=== PATIENT | female | born 1960 | race Hispanic/Latino ===

== ENCOUNTER 2022-06-19 05:37 | Day surgery (SDC) | payer OTHER ==
[2022-06-16 11:38] LABS: BASOPHILS % (AUTO) 0.7 % (0.0-5.0); EOSINOPHILS % (AUTO) 1.9 % (0.0-8.0); LYMPHOCYTES % (AUTO) 18.1 % (21.0-51.0); MEAN CORPUSCULAR HEMOGLOBIN 28.3 pg (27.0-33.0); MEAN CORPUSCULAR HGB CONC 31.9 g/dL (32.0-36.0); MEAN CORPUSCULAR VOLUME 88.8 fL (79-99); MONOCYTES % (AUTO) 5.8 % (3.0-13.0); PLATELET COUNT (AUTO) 116 K/uL (130-400); RED BLOOD CELL COUNT(AUTO) 4.73 MIL/uL (4.00-5.50); RED CELL DISTRIBUTION WIDTH 14.2 % (11.0-15.5); WHITE BLOOD COUNT (AUTO) 4.1 K/uL (4.8-10.8)
[2022-06-16 11:50] LABS: INR 0.96 (0.85-1.15); PROTHROMBIN TIME 10.5 SEC (9.6-11.6)
[2022-06-16 12:02] LABS: ALBUMIN 3.3 g/dL (3.5-5.0); CREATININE 5.2 mg/dL (0.5-1.5); POTASSIUM 4.7 mmol/L (3.5-5.1); TOTAL PROTEIN, SERUM 8.8 g/dL (6.0-8.3)
[~2022-06-19] VITALS: Ht 152.4 cm; Wt 54.2 kg
[2022-06-19] VITALS (18 sets, daily range): BP systolic 111–198; BP diastolic 42–78
[~2022-06-19 05:37] MED LIST: AEC81 PO; AMLO-257 PO; CALC667C10 PO; FOLI1TAB85 PO; GABA100C PO; INSU100V37 SQ; IRON PO; METO25TA6 PO; OMEP20TA20 PO; ROSU40TA21 PO; ZINC220T4 PO
[2022-06-19] MEDS ORDERED: CEFAZOLIN SODIUM 1 GM VIAL IVP SCH (06:00)
[2022-06-19] MEDS ORDERED: 0.9% NACL 500ML IV.SOLN 500 ML IV ONE (06:31)
[2022-06-19] MEDS ORDERED: PHENYLEPHRINE HCL 10 MG/ML 1ML VIAL IV ONE ×2 (07:00→07:03)
[2022-06-19] MEDS ORDERED: FENTANYL CITRATE PF 50 MCG/1 ML 2ML VIAL ONE ×2 (07:01→10:11)
[2022-06-19] MEDS ORDERED: LIDOCAINE HCL-MPF 1% 2ML VIAL ONE (07:01)
[2022-06-19] MEDS ORDERED: BUPIVACAINE/PF 0.25% 30ML VIAL IJ ONE ×2 (07:01→08:03)
[2022-06-19] MEDS ORDERED: MIDAZOLAM HCL 1 MG/ML 2ML VIAL ONE (07:01)
[2022-06-19] MEDS ORDERED: PROPOFOL 10 MG/ML 20ML VIAL IV ONE (07:01)
[2022-06-19] MEDS ORDERED: ROCURONIUM 10MG/1ML SYR 10 MG/ML ML ONE (07:01)
[2022-06-19] MEDS ORDERED: GLYCOPYRROLATE 1 MG/5 ML SYRINGE ONE (07:01)
[2022-06-19] MEDS ORDERED: THROMBIN-JMI 20000 UNIT KIT TP ONE ×4 (07:02→09:32)
[2022-06-19] MEDS ORDERED: FAMOTIDINE 20MG VIAL IV ONE (07:03)
[2022-06-19] MEDS ORDERED: ONDANSETRON 4MG INJ ONE (07:52)
[2022-06-19] MEDS ORDERED: LIDOCAINE HCL-MPF 1% 2ML VIAL IJ ONE (08:03)
[2022-06-19] MEDS ORDERED: HEPARIN 5,000 UNIT VIAL IRRIG ONE (08:03)
[2022-06-19] MEDS ORDERED: CEFAZOLIN SODIUM 2 GM VIAL IV ONE (08:03)
[2022-06-19] MEDS ORDERED: NEOSTIGMINE 5MG/5ML SYR IV ONE (09:38)
[2022-06-19] MEDS ORDERED: LABETALOL 20MG SYG IV ONE (10:07)
== END 2022-06-19 12:30 | disposition home or self-care (01) ==
LOC: DAH 05:37
PROVIDERS: ATTEND Student in an Organized Health Care Education/Training Program
DX: E11.22 Type 2 diabetes mellitus with diabetic chronic kidney disease (principal); I12.0 Hypertensive chronic kidney disease with stage 5 chronic kidney disease or end stage renal disease; N18.6 End stage renal disease; E78.5 Hyperlipidemia, unspecified; K21.9 Gastro-esophageal reflux disease without esophagitis; E78.00 Pure hypercholesterolemia, unspecified; Z79.01 Long term (current) use of anticoagulants; Z79.899 Other long term (current) drug therapy; Z90.49 Acquired absence of other specified parts of digestive tract; Z79.82 Long term (current) use of aspirin; Z98.890 Other specified postprocedural states; Z83.3 Family history of diabetes mellitus; Z82.49 Family history of ischemic heart disease and other diseases of the circulatory system; Z99.2 Dependence on renal dialysis; Z84.1 Family history of disorders of kidney and ureter
CPT/HCPCS: 80053; 85025; 85610; 85730; 86850 ×2; 86900 ×2; 86901 ×2; 87426; 36415 ×2; 36830; 84132; 82948 ×2; A6260; J0690 ×2; J7040; J3490 ×6; J3010 ×2; J2710; J2250; J2704; J2405; J1644 ×2; J2370 ×2; G0168; A4649; C1713 ×2; C1768; A4215; A4223; A4222; A4221; A4663; A4600

== ENCOUNTER → 2022-08-12 | Outpatient (CLI) | payer OTHER | END | disposition home or self-care (01) | LOC: RAH 09:42 | PROVIDERS: ATTEND Internal Medicine Critical Care Medicine | DX: N28.1 Cyst of kidney, acquired (principal); R16.1 Splenomegaly, not elsewhere classified | CPT/HCPCS: 76700 ==

== ENCOUNTER → 2022-10-13 | Outpatient (CLI) | payer OTHER ==
[2022-10-13 09:37] LABS: CREATININE 4.3 mg/dL (0.5-1.5); POTASSIUM 4.3 mmol/L (3.5-5.1); TOTAL PROTEIN, SERUM 7.8 g/dL (6.0-8.3)
== END | disposition home or self-care (01) ==
LOC: LAB 08:48
PROVIDERS: ATTEND Student in an Organized Health Care Education/Training Program
DX: I10 Essential (primary) hypertension (principal)
CPT/HCPCS: 36415; 80053

== ENCOUNTER → 2022-10-27 | Outpatient (CLI) | payer OTHER ==
[~2022-10-27] MED LIST changes: +IOHEXOL 350 MG/ML 100ML INFUS..BTL IV ONE; +METOPROLOL TARTRATE 1 MG/ML 5ML VIAL IV ONE
== END | disposition home or self-care (01) ==
LOC: RAH 08:51
PROVIDERS: ATTEND Student in an Organized Health Care Education/Training Program
DX: J90 Pleural effusion, not elsewhere classified (principal); I20.2 Refractory angina pectoris
CPT/HCPCS: 75574; J3490; Q9967

== ENCOUNTER → 2022-12-15 | Outpatient (CLI) | payer OTHER ==
[~2022-12-15] MED LIST changes: -IOHEXOL 350 MG/ML 100ML INFUS..BTL IV ONE; -METOPROLOL TARTRATE 1 MG/ML 5ML VIAL IV ONE; +REGADENOSON 0.4 MG/5 ML PF SYG IVP SCH
== END | disposition home or self-care (01) ==
LOC: SHCH 08:24
PROVIDERS: ATTEND Student in an Organized Health Care Education/Training Program
DX: I25.10 Atherosclerotic heart disease of native coronary artery without angina pectoris (principal); E11.9 Type 2 diabetes mellitus without complications; Z79.899 Other long term (current) drug therapy
CPT/HCPCS: 78452; 96374; 93017; J2785; A9500 ×2

== ENCOUNTER → 2023-03-29 | Outpatient (CLI) | payer OTHER ==
[~2023-03-29] VITALS: Ht 152.4 cm; Wt 59.1 kg
[~2023-03-29] MED LIST changes: +CARV6.25 PO; +CYAN250014 PO; +GABA-529 PO; +PIOG15TA66 PO; -REGADENOSON 0.4 MG/5 ML PF SYG IVP SCH
[2023-03-29 11:14] LABS: BASOPHILS % (AUTO) 0.5 % (0.0-5.0); HEMATOCRIT 38.2 % (36-48); LYMPHOCYTES % (AUTO) 26.3 % (21.0-51.0); MEAN CORPUSCULAR HEMOGLOBIN 30.1 pg (27.0-33.0); MEAN CORPUSCULAR HGB CONC 31.2 g/dL (32.0-36.0); MEAN CORPUSCULAR VOLUME 96.7 fL (79-99); MONOCYTES % (AUTO) 9.3 % (3.0-13.0); NEUTROPHILS % (AUTO) 62.4 % (40.0-77.0); PLATELET COUNT (AUTO) 60 K/uL (130-400); RED BLOOD CELL COUNT(AUTO) 3.95 MIL/uL (4.00-5.50); RED CELL DISTRIBUTION WIDTH 14.4 % (11.0-15.5); WHITE BLOOD COUNT (AUTO) 1.9 K/uL (4.8-10.8)
[2023-03-29 11:15] LABS: APPEARANCE,URINE CLEAR (CLEAR); BILIRUBIN,URINE NEGATIVE (NEGATIVE); COLOR,URINE LIGHT-YELLOW (YELLOW); GLUCOSE, URINE (UA) 50 mg/dL (NEGATIVE); KETONES,URINE NEGATIVE (NEGATIVE); LEUKOCYTE ESTERASE ,URINE NEGATIVE Leu/uL (NEGATIVE); NITRATE,URINE NEGATIVE (NEGATIVE); PROTEIN,URINE 300 mg/dL (NEGATIVE); UROBILINOGEN,URINE 0.2 mg/dL (0.2-1.0)
[2023-03-29 11:20] LABS: CREATININE 3.8 mg/dL (0.5-1.5); POTASSIUM 4.2 mmol/L (3.5-5.1)
[2023-03-29 11:22] VITALS: BP 170/73
[2023-03-29 11:36] LABS: INR 1.05 (0.85-1.15); PROTHROMBIN TIME 11.4 SEC (9.6-11.6)
[2023-03-29 11:37] LABS: BACTERIA,URINE RARE /HPF (None Seen); MUCUS,URINE RARE LPF (None Seen); RBC,URINE 0-1 /HPF (0-1); SQUAMOUS EPITHELIAL CELL,UR RARE /HPF (0-2)
[2023-03-29 11:38] LABS: PARTIAL THROMBOPLASTIN TIME 30.7 SEC (26.3-35.5)
[2023-03-29 11:48] LABS: B-TYPE NATRIURETIC PEPTIDE 289 pg/mL (0-100)
[2023-03-29 12:57] LABS: PLATELET MORPHOLOGY COMMENT DECREASED
== END | disposition home or self-care (01) ==
LOC: DAH 10:00 → EDSTATUS 11:00
PROVIDERS: ATTEND Student in an Organized Health Care Education/Training Program
DX: Z01.818 Encounter for other preprocedural examination (principal); I50.9 Heart failure, unspecified; I45.2 Bifascicular block; R91.8 Other nonspecific abnormal finding of lung field; I51.7 Cardiomegaly; I70.0 Atherosclerosis of aorta; Z90.49 Acquired absence of other specified parts of digestive tract
CPT/HCPCS: 36415; 71045; 80048; 81001; 83880; 85025; 85610; 85730; 93005

== ENCOUNTER → 2023-04-14 | Outpatient (CLI) | payer OTHER ==
[~2023-04-14] MED LIST changes: -AMLO-257 PO; -CYAN250014 PO; -GABA100C PO; -IRON PO; -METO25TA6 PO; -OMEP20TA20 PO; -ZINC220T4 PO
[2023-04-14 12:08] LABS: BASOPHILS % (AUTO) 0.8 % (0.0-5.0); EOSINOPHILS % (AUTO) 0.4 % (0.0-8.0); LYMPHOCYTES % (AUTO) 22.8 % (21.0-51.0); MEAN CORPUSCULAR HEMOGLOBIN 30.1 pg (27.0-33.0); MEAN CORPUSCULAR HGB CONC 31.7 g/dL (32.0-36.0); MEAN CORPUSCULAR VOLUME 94.9 fL (79-99); MONOCYTES % (AUTO) 8.4 % (3.0-13.0); NEUTROPHILS % (AUTO) 67.2 % (40.0-77.0); PLATELET COUNT (AUTO) 71 K/uL (130-400); RED BLOOD CELL COUNT(AUTO) 4.32 MIL/uL (4.00-5.50); RED CELL DISTRIBUTION WIDTH 14.1 % (11.0-15.5); WHITE BLOOD COUNT (AUTO) 2.6 K/uL (4.8-10.8)
[2023-04-14 12:38] LABS: BAND NEUTROPHILS % (MANUAL) 21 % (0-2); BASOPHILS % (MANUAL) 1 % (0-2); EOSINOPHILS % (MANUAL) 1 % (1-6); LYMPHOCYTES % (MANUAL) 20 % (22-44); MAN.DIFF COMMENT-IMPRESSION MANUAL DIFFERENTIAL; MONOCYTES % (MANUAL) 5 % (2-9); SEGMENTED NEUTROPHILS % 52 % (40-70)
[2023-04-14 12:39] LABS: PLATELET MORPHOLOGY COMMENT DECREASED
== END | disposition home or self-care (01) ==
LOC: LAB 09:50
PROVIDERS: ATTEND Student in an Organized Health Care Education/Training Program
DX: D72.819 Decreased white blood cell count, unspecified (principal)
CPT/HCPCS: 36415; 85025

== ENCOUNTER 2023-05-17 05:45 | Day surgery (SDC) | payer OTHER ==
[2023-05-13 09:17] LABS: BASOPHILS % (AUTO) 0.4 % (0.0-5.0); EOSINOPHILS % (AUTO) 0.8 % (0.0-8.0); HEMATOCRIT 41.3 % (36-48); LYMPHOCYTES % (AUTO) 30.4 % (21.0-51.0); MEAN CORPUSCULAR HEMOGLOBIN 29.7 pg (27.0-33.0); MEAN CORPUSCULAR HGB CONC 31.2 g/dL (32.0-36.0); MEAN CORPUSCULAR VOLUME 95.2 fL (79-99); MONOCYTES % (AUTO) 7.5 % (3.0-13.0); NEUTROPHILS % (AUTO) 60.9 % (40.0-77.0); PLATELET COUNT (AUTO) 63 K/uL (130-400); RED BLOOD CELL COUNT(AUTO) 4.34 MIL/uL (4.00-5.50); RED CELL DISTRIBUTION WIDTH 13.6 % (11.0-15.5); WHITE BLOOD COUNT (AUTO) 2.4 K/uL (4.8-10.8)
[2023-05-13 09:22] LABS: CREATININE 5.7 mg/dL (0.5-1.5); POTASSIUM 4.4 mmol/L (3.5-5.1)
[2023-05-13 09:23] LABS: APPEARANCE,URINE CLEAR (CLEAR); BILIRUBIN,URINE NEGATIVE (NEGATIVE); COLOR,URINE LIGHT-YELLOW (YELLOW); GLUCOSE, URINE (UA) NEGATIVE (NEGATIVE); KETONES,URINE NEGATIVE (NEGATIVE); LEUKOCYTE ESTERASE ,URINE 25 Leu/uL (NEGATIVE); NITRATE,URINE NEGATIVE (NEGATIVE); OCCULT BLOOD,URINE SMALL (NEGATIVE); PROTEIN,URINE 200 mg/dL (NEGATIVE); UROBILINOGEN,URINE 0.2 mg/dL (0.2-1.0)
[2023-05-13 09:25] LABS: INR 1.05 (0.85-1.15); PROTHROMBIN TIME 11.4 SEC (9.6-11.6)
[2023-05-13 10:10] LABS: B-TYPE NATRIURETIC PEPTIDE 165 pg/mL (0-100)
[2023-05-13 10:11] LABS: BACTERIA,URINE FEW /HPF (None Seen); MUCUS,URINE RARE LPF (None Seen); SQUAMOUS EPITHELIAL CELL,UR MANY /HPF (0-2)
[2023-05-13 10:40] LABS: BAND NEUTROPHILS % (MANUAL) 1 % (0-2); BASOPHILS % (MANUAL) 2 % (0-2); EOSINOPHILS % (MANUAL) 5 % (1-6); LYMPHOCYTES % (MANUAL) 23 % (22-44); MAN.DIFF COMMENT-IMPRESSION MANUAL DIFFERENTIAL; MONOCYTES % (MANUAL) 8 % (2-9); PLATELET MORPHOLOGY COMMENT DECREASED; REACTIVE LYMPHOCYTES 1 % (0-0); SEGMENTED NEUTROPHILS % 60 % (40-70)
[2023-05-17] VITALS (14 sets, daily range): BP systolic 106–185; BP diastolic 40–62
[~2023-05-17] VITALS: Ht 152.4 cm; Wt 61.1 kg
[~2023-05-17 05:45] MED LIST changes: +AMLO-258 PO
[2023-05-17] MEDS ORDERED: 0.9%NACL 1000ML 1,000 ML IV ONE (06:21)
[2023-05-17] MEDS ORDERED: MIDAZOLAM HCL 1 MG/ML 2ML VIAL ONE (07:09)
[2023-05-17] MEDS ORDERED: LIDOCAINE HCL 400MG/20ML VIAL ONE (07:09)
[2023-05-17] MEDS ORDERED: FENTANYL CITRATE PF 50 MCG/1 ML 2ML VIAL ONE (07:09)
[2023-05-17] MEDS ORDERED: VERAPAMIL HCL 2.5 MG/ML VIAL ONE (07:10)
[2023-05-17] MEDS ORDERED: IOHEXOL 350 MG/ML 100ML INFUS..BTL IV ONE (07:10)
[2023-05-17] MEDS ORDERED: HEPARIN 10,000 UNIT/10ML (1,000 UNIT/ML) VIAL ONE (07:10)
[2023-05-17] MEDS ORDERED: NITROGLYCERIN 50MG VIAL ONE (07:10)
[2023-05-17 07:20] LABS: BASOPHILS % (AUTO) 0.9 % (0.0-5.0); EOSINOPHILS % (AUTO) 0.4 % (0.0-8.0); LYMPHOCYTES % (AUTO) 33.8 % (21.0-51.0); MEAN CORPUSCULAR HEMOGLOBIN 30.1 pg (27.0-33.0); MEAN CORPUSCULAR HGB CONC 31.8 g/dL (32.0-36.0); MEAN CORPUSCULAR VOLUME 94.5 fL (79-99); MONOCYTES % (AUTO) 10.4 % (3.0-13.0); NEUTROPHILS % (AUTO) 54.1 % (40.0-77.0); PLATELET COUNT (AUTO) 57 K/uL (130-400); RED BLOOD CELL COUNT(AUTO) 4.02 MIL/uL (4.00-5.50); RED CELL DISTRIBUTION WIDTH 13.7 % (11.0-15.5); WHITE BLOOD COUNT (AUTO) 2.3 K/uL (4.8-10.8)
[2023-05-17 07:50] LABS: BAND NEUTROPHILS % (MANUAL) 1 % (0-2); LYMPHOCYTES % (MANUAL) 29 % (22-44); MAN.DIFF COMMENT-IMPRESSION MANUAL DIFFERENTIAL; MONOCYTES % (MANUAL) 7 % (2-9); PLATELET MORPHOLOGY COMMENT DECREASED; REACTIVE LYMPHOCYTES 2 % (0-0); SEGMENTED NEUTROPHILS % 61 % (40-70)
[2023-05-17] MEDS ORDERED: GLUCAGON 1MG KIT 1 MG ML IM PRN (08:30)
[2023-05-17] MEDS ORDERED: DEXTROSE 50%-WATER 50 ML DISP.SYRIN IV PRN (08:30)
== END 2023-05-17 14:50 | disposition home or self-care (01) ==
LOC: DAH 05:45 → EDSTATUS 08:00 → DAH 14:50
PROVIDERS: ATTEND Student in an Organized Health Care Education/Training Program
DX: I25.119 Atherosclerotic heart disease of native coronary artery with unspecified angina pectoris (principal); E11.22 Type 2 diabetes mellitus with diabetic chronic kidney disease; I13.2 Hypertensive heart and chronic kidney disease with heart failure and with stage 5 chronic kidney disease, or end stage renal disease; N18.6 End stage renal disease; I50.42 Chronic combined systolic (congestive) and diastolic (congestive) heart failure; I25.2 Old myocardial infarction; I27.21 Secondary pulmonary arterial hypertension; D72.819 Decreased white blood cell count, unspecified; E78.2 Mixed hyperlipidemia; R55 Syncope and collapse; I44.4 Left anterior fascicular block; Z98.890 Other specified postprocedural states; Z90.49 Acquired absence of other specified parts of digestive tract; Z82.49 Family history of ischemic heart disease and other diseases of the circulatory system; Z83.3 Family history of diabetes mellitus; Z99.2 Dependence on renal dialysis
CPT/HCPCS: 80048; 83880; 85025 ×2; 85610; 85730; 87088; 81001; 36415 ×2; 71045; 93005; 93460; 84132; 82948 ×2; C1894 ×3; C1769; C1760; J3010; J3490 ×2; J7030; J2250; J1644; Q9967; A4215 ×2; A4222; A4663; A4216; A4606; Q9965; A4223 ×3; A4221; 99156; 99157

== ENCOUNTER → 2023-07-27 | Outpatient (CLI) | payer OTHER ==
[2023-07-27 12:22] LABS: CHOLESTEROL 134 mg/dL (<200); HDL CHOLESTEROL 40 mg/dL (35-85); LDL DIRECT 64 mg/dL (0-99); TRIGLYCERIDES 133 mg/dL (30-200)
== END | disposition home or self-care (01) ==
LOC: LAB 05-26 14:13
PROVIDERS: ATTEND Student in an Organized Health Care Education/Training Program
DX: E78.2 Mixed hyperlipidemia (principal)
CPT/HCPCS: 36415; 80061

== ENCOUNTER → 2024-07-12 | Outpatient (CLI) | payer OTHER ==
[~2024-07-12] MED LIST changes: -ROSU40TA21 PO; +ROSU40TA70 PO
[2024-07-12 10:31] LABS: BASOPHILS # (AUTO) 0.01 K/uL (0.00-0.20); BASOPHILS % (AUTO) 0.6 % (0.0-5.0); EOSINOPHILS # (AUTO) 0.02 K/uL (0.00-0.70); EOSINOPHILS % (AUTO) 1.2 % (0.0-8.0); HEMATOCRIT 29.5 % (36-48); LYMPHOCYTES # (AUTO) 0.5 K/uL (1.0-4.8); LYMPHOCYTES % (AUTO) 26.2 % (21.0-51.0); MEAN CORPUSCULAR HEMOGLOBIN 30.4 pg (27.0-33.0); MEAN CORPUSCULAR HGB CONC 31.9 g/dL (32.0-36.0); MEAN CORPUSCULAR VOLUME 95.5 fL (79-99); MONOCYTES # (AUTO) 0.2 K/uL (0.1-1.0); MONOCYTES % (AUTO) 12.8 % (3.0-13.0); NEUTROPHILS % (AUTO) 59.2 % (40.0-77.0); PLATELET COUNT (AUTO) 48 K/uL (130-400); RED BLOOD CELL COUNT(AUTO) 3.09 MIL/uL (4.00-5.50); RED CELL DISTRIBUTION WIDTH 13.9 % (11.0-15.5); WHITE BLOOD COUNT (AUTO) 1.7 K/uL (4.8-10.8)
[2024-07-12 12:44] LABS: PLATELET MORPHOLOGY COMMENT MARKED DECREASE
== END | disposition home or self-care (01) ==
LOC: LAB 09:45
PROVIDERS: ATTEND Internal Medicine Gastroenterology
DX: D69.6 Thrombocytopenia, unspecified (principal)
CPT/HCPCS: 36415; 85025

== ENCOUNTER 2024-07-18 11:29 | Day surgery (SDC) | payer OTHER ==
[~2024-07-18] VITALS: Ht 154.9 cm; Wt 61.7 kg
[2024-07-18] VITALS (14 sets, daily range): BP systolic 110–145; BP diastolic 46–77; PULSE 63–75; RESP 15–18
[2024-07-18 12:18] LABS: BASOPHILS # (AUTO) 0.02 K/uL (0.00-0.20); BASOPHILS % (AUTO) 0.8 % (0.0-5.0); EOSINOPHILS # (AUTO) 0.02 K/uL (0.00-0.70); EOSINOPHILS % (AUTO) 0.8 % (0.0-8.0); HEMATOCRIT 31.8 % (36-48); IMMATURE GRANULOCYTE ABSOLUTE 0.01 K/uL (0-1); LYMPHOCYTES # (AUTO) 0.7 K/uL (1.0-4.8); LYMPHOCYTES % (AUTO) 26.9 % (21.0-51.0); MEAN CORPUSCULAR HEMOGLOBIN 30.9 pg (27.0-33.0); MEAN CORPUSCULAR HGB CONC 31.4 g/dL (32.0-36.0); MEAN CORPUSCULAR VOLUME 98.1 fL (79-99); MONOCYTES # (AUTO) 0.2 K/uL (0.1-1.0); MONOCYTES % (AUTO) 7.2 % (3.0-13.0); NEUTROPHILS # (AUTO) 1.6 K/uL (1.8-7.7); NEUTROPHILS % (AUTO) 63.9 % (40.0-77.0); PLATELET COUNT (AUTO) 52 K/uL (130-400); RED BLOOD CELL COUNT(AUTO) 3.24 MIL/uL (4.00-5.50); RED CELL DISTRIBUTION WIDTH 14.6 % (11.0-15.5); WHITE BLOOD COUNT (AUTO) 2.5 K/uL (4.8-10.8)
[2024-07-18 12:27] LABS: CREATININE 5.7 mg/dL (0.5-1.0); POTASSIUM 4.9 mmol/L (3.5-5.1)
[2024-07-18] MEDS ORDERED: CARV12.511 PO (12:40)
[2024-07-18] MEDS ORDERED: GABA300C PO (12:42)
[2024-07-18] MEDS ORDERED: INSU100V37 SQ (12:42)
[2024-07-18] MEDS ORDERED: IRON PO (12:44)
[2024-07-18] MEDS ORDERED: OMEP20CA12 PO (12:44)
[2024-07-18] MEDS ORDERED: CHOL200013 PO (12:48)
[2024-07-18] MEDS ORDERED: CYAN-106 PO (12:48)
[2024-07-18] MEDS: 0.9%NACL 1000ML 1,000 ML IV ONE (12:51)
[2024-07-18 13:42] LABS: INR 1.1 (0.85-1.15); PROTHROMBIN TIME 11.8 SEC (9.6-11.6)
[2024-07-18] MEDS ORDERED: proPOFol 10 MG/ML 20ML VIAL IV ONE (14:15)
[2024-07-18 14:38] LABS: LYMPHOCYTES % (MANUAL) 14 % (22-44); MAN.DIFF COMMENT-IMPRESSION MANUAL DIFFERENTIAL; MONOCYTES % (MANUAL) 2 % (2-9); SEGMENTED NEUTROPHILS % 84 % (40-70); TOTAL CELLS COUNTED 100
[2024-07-18 14:40] LABS: PLATELET MORPHOLOGY COMMENT DECREASED
== END 2024-07-18 15:48 | disposition home or self-care (01) ==
LOC: DAH 11:29 → ENDO 11:29
PROVIDERS: ATTEND Internal Medicine Gastroenterology
DX: K74.60 Unspecified cirrhosis of liver (principal); K29.00 Acute gastritis without bleeding; K44.9 Diaphragmatic hernia without obstruction or gangrene; K22.89 Other specified disease of esophagus; K76.6 Portal hypertension; K31.89 Other diseases of stomach and duodenum; I12.0 Hypertensive chronic kidney disease with stage 5 chronic kidney disease or end stage renal disease; E11.22 Type 2 diabetes mellitus with diabetic chronic kidney disease; N18.6 End stage renal disease; D69.6 Thrombocytopenia, unspecified; E03.9 Hypothyroidism, unspecified; Z90.49 Acquired absence of other specified parts of digestive tract; Z88.8 Allergy status to other drugs, medicaments and biological substances; Z79.82 Long term (current) use of aspirin; Z79.899 Other long term (current) drug therapy
CPT/HCPCS: 43235; 80048; 85025; 85610; 82948 ×2; 36415; J7030 ×2; J2704; A4620; A4215 ×2; A4223; A4657 ×2; A4222; A4221; A4663; A4606; J3490

== ENCOUNTER → 2024-08-23 | Outpatient (CLI) | payer OTHER ==
[~2024-08-23] MED LIST changes: -AEC81 PO; +CARV12.511 PO; -CARV6.25 PO; +CHOL200013 PO; +CYAN-106 PO; -FOLI1TAB85 PO; -GABA-529 PO; +GABA300C PO; +IRON PO; +OMEP20CA12 PO; -ROSU40TA70 PO; +ROSU40TA88 PO
[2024-08-23 12:30] LABS: CHOLESTEROL 92 mg/dL (<200); HDL CHOLESTEROL 41 mg/dL (35-85); LDL DIRECT 38 mg/dL (0-99); TRIGLYCERIDES 167 mg/dL (30-200)
== END | disposition home or self-care (01) ==
LOC: LAB 09:43
PROVIDERS: ATTEND Student in an Organized Health Care Education/Training Program
DX: I12.0 Hypertensive chronic kidney disease with stage 5 chronic kidney disease or end stage renal disease (principal); N18.6 End stage renal disease; E78.2 Mixed hyperlipidemia; D72.819 Decreased white blood cell count, unspecified
CPT/HCPCS: 36415; 80061

== ENCOUNTER → 2024-12-09 | Outpatient (CLI) | payer OTHER | END | disposition home or self-care (01) | LOC: SHCH 13:18 | PROVIDERS: ATTEND Student in an Organized Health Care Education/Training Program | DX: I73.9 Peripheral vascular disease, unspecified (principal) | CPT/HCPCS: 93925 ==

== ENCOUNTER → 2025-02-26 | Outpatient (CLI) | payer OTHER ==
[2025-02-26 12:32] LABS: BASOPHILS # (AUTO) 0.02 K/uL (0.00-0.20); BASOPHILS % (AUTO) 0.8 % (0.0-5.0); EOSINOPHILS # (AUTO) 0.01 K/uL (0.00-0.70); EOSINOPHILS % (AUTO) 0.4 % (0.0-8.0); HEMATOCRIT 36.3 % (36-48); IMMATURE GRANULOCYTE ABSOLUTE 0.01 K/uL (0-1); LYMPHOCYTES # (AUTO) 0.5 K/uL (1.0-4.8); LYMPHOCYTES % (AUTO) 19.4 % (21.0-51.0); MEAN CORPUSCULAR HEMOGLOBIN 30.5 pg (27.0-33.0); MEAN CORPUSCULAR HGB CONC 29.8 g/dL (32.0-36.0); MEAN CORPUSCULAR VOLUME 102.5 fL (79-99); MONOCYTES # (AUTO) 0.2 K/uL (0.1-1.0); MONOCYTES % (AUTO) 7.9 % (3.0-13.0); NEUTROPHILS # (AUTO) 1.8 K/uL (1.8-7.7); NEUTROPHILS % (AUTO) 71.1 % (40.0-77.0); PLATELET COUNT (AUTO) 53 K/uL (130-400); RED BLOOD CELL COUNT(AUTO) 3.54 MIL/uL (4.00-5.50); WHITE BLOOD COUNT (AUTO) 2.5 K/uL (4.8-10.8)
[2025-02-26 12:41] LABS: INR 1.07 (0.85-1.15); PROTHROMBIN TIME 11.3 SEC (9.6-11.6)
[2025-02-26 12:42] LABS: PARTIAL THROMBOPLASTIN TIME 29.1 SEC (26.3-35.5)
[2025-02-26 12:44] LABS: CREATININE 3.5 mg/dL (0.5-1.0); POTASSIUM 3.6 mmol/L (3.5-5.1)
[2025-02-26 15:37] LABS: BAND NEUTROPHILS % (MANUAL) 12 % (0-2); LYMPHOCYTES % (MANUAL) 10 % (22-44); MONOCYTES % (MANUAL) 2 % (2-9); REACTIVE LYMPHOCYTES 6 % (0-0); SEGMENTED NEUTROPHILS % 70 % (40-70); TOTAL CELLS COUNTED 100
[2025-02-26 15:38] LABS: MAN.DIFF COMMENT-IMPRESSION MANUAL DIFFERENTIAL
== END | disposition home or self-care (01) ==
LOC: LAB 09:28
PROVIDERS: ATTEND Student in an Organized Health Care Education/Training Program
DX: I13.2 Hypertensive heart and chronic kidney disease with heart failure and with stage 5 chronic kidney disease, or end stage renal disease (principal); I50.20 Unspecified systolic (congestive) heart failure; E11.22 Type 2 diabetes mellitus with diabetic chronic kidney disease; N18.6 End stage renal disease; I73.9 Peripheral vascular disease, unspecified; R06.02 Shortness of breath; D72.819 Decreased white blood cell count, unspecified; E78.2 Mixed hyperlipidemia; R55 Syncope and collapse; I44.4 Left anterior fascicular block; Z79.899 Other long term (current) drug therapy; Z99.2 Dependence on renal dialysis
CPT/HCPCS: 36415; 80048; 85025; 85610; 85730

== ENCOUNTER 2025-04-13 08:28 | Emergency (ER) | payer OTHER ==
[~2025-04-13] VITALS: Ht 152.4 cm; Wt 60.8 kg
--- NOTE | 2025-04-13 08:40 | NUR ---
PT STATES SHE HAS HER DIASLYIS RESCHEDULED FOR TOMORROW.
[2025-04-13] MEDS: acetaMINOPHEN 500 MG TABLET PO ONE (08:47)
--- NOTE | 2025-04-13 09:06 | ERN ---
General Chief Complaint: Mechanical Fall Stated Complaint: fall Time Seen by MD: 08:29 Source: patient, family History of Present Illness Initial Comments Patient is a 64-year-old female coming in to be evaluated after fell out of bed. Patient states he was asleep and rolled over fell down hitting herself in the face. She is coming in with facial pain. Allergies: Coded Allergies: No Known Drug Allergies (Verified Allergy, Unknown, 06/16/22) Home Meds Reported Medications Cholecalciferol (Vitamin D3) (Vitamin D3) 50 Mcg (2000 Unit) Capsule, 50 MCG PO AM, CAP 07/18/24 Cyanocobalamin (Vitamin B-12) (Vitamin B12) 1,000 Mcg Tablet, 1000 MCG PO AM, TAB 07/18/24 [Iron] No Conflict Check, 65 MG PO AM 07/18/24 Omeprazole (Omeprazole) 20 Mg Capsule.dr, 20 MG PO AM, CAP 07/18/24 Insulin Degludec (Tresiba) 100 Unit/Ml Vial, 100 UNIT SQ HS, VIAL 07/18/24 Gabapentin (Neurontin) 300 Mg Capsule, 300 MG PO TID, CAP 07/18/24 Carvedilol (Carvedilol) 12.5 Mg Tablet, 12.5 MG PO BID, TAB 07/18/24 Amlodipine Besylate (Amlodipine Besylate) 10 Mg Tablet, 10 MG PO DAILY for 30 Days, #30 TAB 0 Refills 05/13/23 Calcium Acetate (Calcium Acetate) 667 Mg Capsule, 667 MG PO DAILY, CAP 03/29/23 Rosuvastatin Calcium (Rosuvastatin Calcium) 40 Mg Tablet, 40 MG PO DAILY, TAB 03/29/23 Pioglitazone HCl (Pioglitazone HCl) 15 Mg Tablet, 15 MG PO DAILY, TAB 03/29/23 Past Medical History Past Medical History: Diabetes-Type II, High Cholesterol, Hypertension, Liver Disease, Renal Disese Past Surgical History: NICOLE Keane CONSTITUTIONAL: No chills, no fever, no weakness, no diaphoresis, no malaise. HEAD/FACE: signs of trauma. EENT: No eye pain, no blurred vision, no tearing, no double vision, no ear pain, no ear discharge, no nose pain, no nasal congestion, no throat pain, no throat swelling, no mouth pain. RESPIRATORY: No cough, no orthopnea, no SOB, no stridor, no wheezing. CARDIOVASCULAR: No chest pain, no edema, no palpitations, no syncope. GASTROINTESTINAL/ABDOMINAL: No abdominal pain, no constipation, no diarrhea, no nausea, no vomiting. GENITOURINARY: No abnormal discharge, no dysuria, no frequent urination, no hematuria. No complaints of pain in the genitals. MUSCULOSKELETAL: No back pain, no gout, no joint pain, no joint swelling, no muscle pain, no muscle stiffness, no neck pain. INTEGUMENTARY: No change in color, no change in hair/nails, no dryness, no lesion, no lumps, no rash. NEUROLOGICAL/PSYCH: No anxiety, not depressed, no emotional problem, no headache, no numbness, no pre-existing deficit, no history of seizures, no tremors, no weakness. HEMATOLOGIC/LYMPHATIC: Not anemic, no history of blood clots, no apparent bleeding, no bruising, glands not swollen. All Systems Negative, Except as Noted. Physical Exam Physical Exam Dictation VITAL SIGNS: Reviewed. GENERAL APPEARANCE: Alert, oriented x3, no acute distress, obese. HEAD AND FACE: Ecchymosis around the eyes bilateral. EYES: PERRL, pink conjunctivas, eyelid no trauma, anterior chamber clear. EARS: Pinnas intact and no signs of trauma or erythema. Ear canals clear and no discharge. TMs no erythema. NOSE: No discharge, no bleeding. OROPHARYNX: Mouth normal, teeth no caries, tongue pink. Pharynx clear, no erythema. Tonsils no exudates, no abscesses noted. Mucous membrane moist. NECK: Supple, non-tender, no thyromegaly, no masses, no JVD, no bruits. BREAST: Deferred. CHEST: No tenderness, no crepitus, no paradoxical movement, no retractions. LUNGS: Clear, well-ventilated, symmetric, no rales, no wheezing, no rhonchi, no stridor, good breath sounds bilaterally. HEART: Regular rate, regular rhythm, no murmur, no gallops. VASCULAR: No peripheral edema. ABDOMEN: Soft, positive bowel sounds, nondistended, no guarding, nontender, no rebound, no masses no hepatomegaly, no splenomegaly, no Marsh's sign, no hernias. RECTAL: Deferred. GENITAL: Deferred. NEUROLOGICAL: Normal speech, gross motor function intact, gross sensory function intact. MUSCULOSKELETAL: Neck nontender, full range of motion, back nontender, full range of motion. EXTREMITIES: Nontender, full range of motion. SKIN: Color pink, dry, no turgor, no rash, no lacerations, no abrasions, no contusions. LYMPHATICS: Deferred. Results Laboratory and Microbiology Labs Reviewed?: Yes EKG/XRAY/US/CT/MRI CT Scan Comment [facility] [address] [place] [address] IMAGING REPORT Signed PATIENT: RACHID KAPOOR MR#: [id number] : 1960 SEX: F AGE: 64 LOCATION: [facility] ORDER 3 STATUS: [facility] ER REPORT#: [id number] SERVICE 2 REASON: fall ORDERING PHYSICIAN: KYMBERLY PRATT MD PROCEDURE: MAXFACI WO - CT MAXILLOFACIAL W/O CONTRAST CT MAXILLOFACIAL W/O CONTRAST HISTORY: Status post fall COMPARISON: None TECHNIQUE: Multiple sequential high-resolution axial images of the paranasal sinuses were obtained. Postprocessing sagittal and coronal reconstruction images were also obtained. Patient was not given contrast through intravenous route. FINDINGS: Nasal septum is grossly midline. There is no evidence of mucoperiosteal thickening involving the paranasal sinuses. The infundibula are patent bilaterally. No acute displaced fracture is seen. There is no evidence of air-fluid level in the paranasal sinuses. Parapharyngeal fat planes are preserved bilaterally. IMPRESSION: 1. No acute displaced fracture is seen. CT was performed with one or more following dose reduction techniques: automated exposure control, adjustment of the mA and kv according to patient's size, or use of a iterative reconstruction technique. DICTATED BY: SIMÓN MASON MD DATE: 04/13/25937 ELECTRONICALLY SIGNED BY: SIMÓN MASON MD DATE: 04/13/25941 [facility] MDM: Differential diagnosis: Fall, orbital fracture, facial contusion, nasal fracture, Rationale: Tests considered and ordered secondary to shared decision making include: Previous outside records reviewed: Old ER visits. Risk of complication and/or morbidity or mortality of patient management: None Medications-Per medication reconciliation Patient is a 64-year-old female coming in after she rolled out of bed and herself in the face. CT did not disclose acute findings. Patient will be discharged in stable condition with a diagnosis of facial contusion. Patient is a alert and oriented medication will be provided for symptomatic relief. ED Course Orders Procedure Category Date Status Time Ct Maxillofacial W/O CT 04/13/25 Resulted Contrast 08:33 Acetaminophen 500mg PHA 04/13/25 Complete Tab (Tylenol 500mg T 09:00 Current Medications Medications (Trade) Dose Ordered Sig/Lesli Route PRN Reason Start Time Stop Time Status Last Admin Dose Admin Acetaminophen (TYLenol 500MG TAB) 1,000 mg ONCE ONCE PO 04/13/25 09:00 04/13/25 09:01 DC 04/13/25 08:47 Vital Signs Date Time Temp Pulse Resp B/P (MAP) Pulse Ox O2 Delivery O2 Flow Rate FiO2 04/13/25 08:40 97.2 95 16 114/47 93 Nasal Cannula* 2 28 04/13/25 08:29 97.2 95 16 114/47 93 Room Air 0 DX & DISP Disposition: Discharge Departure Impression: Primary Impression: Fall from bed Additional Impression: Facial contusion Condition: Stable Scripts Acetaminophen (Tylenol) 500 Mg Tab 1 TAB PO Q6HPRN PRN for pain or fever for 5 Days, #30 TAB 0 Refills Prov: KYMBERLY PRATT MD 04/13/25 Additional Instructions: FOLLOW-UP WITH PRIMARY CARE PROVIDER IN 1 TO 2 DAYS. TAKE MEDICATIONS DIRECTED HERE IN THE EMERGENCY ROOM. OKAY TO CONTINUE HOME MEDICATIONS UNLESS OTHERWISE DISCUSSED DURING YOUR VISIT IN THE EMERGENCY ROOM TODAY. RETURN TO YOUR NEAREST EMERGENCY ROOM IF SYMPTOMS WORSEN OR IF THERE IS NO IMPROVEMENT. CALL 911 IF YOU NEED IMMEDIATE ASSISTANCE. TAKE TYLENOL [id number] NEEDED AND IF NO CONTRAINDICATIONS ARE PRESENT. INCREASE ORAL HYDRATION. A WOUND CULTURE OR URINE CULTURE WAS ORDERED HERE IN THE EMERGENCY ROOM DEPARTMENT PLEASE FOLLOW-UP WITH PRIMARY CARE PROVIDER AND ADVISE THEM TO GET REPEAT PORTS FROM OUR FACILITY. IF YOU HAD ANY LACIE WRAP/SPLINTS THAT WERE APPLIED HERE, PLEASE DO NOT REMOVE THEM UNTIL YOU SEE YOUR PRIMARY CARE OR SPECIALTY. Referrals: Referrals: BETZAIDA KEENAN MD (PCP) Time of Disposition: 09:45 KYMBERLY PRATT MD April 13, 2025 09:06
--- NOTE | 2025-04-13 09:42 | HMCIMG ---
CT MAXILLOFACIAL W/O CONTRAST HISTORY: Status post fall COMPARISON: None TECHNIQUE: Multiple sequential high-resolution axial images of the paranasal sinuses were obtained. Postprocessing sagittal and coronal reconstruction images were also obtained. Patient was not given contrast through intravenous route. FINDINGS: Nasal septum is grossly midline. There is no evidence of mucoperiosteal thickening involving the paranasal sinuses. The infundibula are patent bilaterally. No acute displaced fracture is seen. There is no evidence of air-fluid level in the paranasal sinuses. Parapharyngeal fat planes are preserved bilaterally. IMPRESSION: 1. No acute displaced fracture is seen. CT was performed with one or more following dose reduction techniques: automated exposure control, adjustment of the mA and kv according to patient's size, or use of a iterative reconstruction technique.
[2025-04-13] MEDS ORDERED: ACET-66 PO (09:46)
[2025-04-13 10:04] VITALS: BP 131/59; PULSE 72; RESP 16; TEMP 97.2; O2SAT 95
== END 2025-04-13 10:13 | disposition home or self-care (01) ==
LOC: EDH 08:28
DX: S00.83XA Contusion of other part of head, initial encounter (principal); E11.9 Type 2 diabetes mellitus without complications; E78.00 Pure hypercholesterolemia, unspecified; I10 Essential (primary) hypertension; Z79.84 Long term (current) use of oral hypoglycemic drugs; Z79.899 Other long term (current) drug therapy; W06.XXXA Fall from bed, initial encounter; Y93.89 Activity, other specified; Y92.89 Other specified places as the place of occurrence of the external cause; Y99.8 Other external cause status
CPT/HCPCS: 70486; 99284

== ENCOUNTER 2025-07-17 10:15 | Day surgery (SDC) | payer OTHER ==
[2025-07-10 15:23] LABS: IMMATURE GRANULOCYTE ABSOLUTE 0.01 K/uL (0-1); NUCLEATED RED BLOOD CELLS 0.0 % (0.0-0.19); PLATELET COUNT (AUTO) 38 K/uL (130-400); RED BLOOD CELL COUNT(AUTO) 3.27 MIL/uL (4.00-5.50); RED CELL DISTRIBUTION WIDTH 14.7 % (11.0-15.5); WHITE BLOOD COUNT (AUTO) 2.0 K/uL (4.8-10.8)
[2025-07-10 15:29] LABS: INR 1.05 (0.85-1.15)
[2025-07-10 15:35] LABS: ASPARTATE AMINOTRANSFERASE 26 U/L (10-37); CREATININE 6.3 mg/dL (0.5-1.0); GLOMERULAR FILTR. RATE CALC 7 mL/min (>90); GLUCOSE,RANDOM 132 mg/dL (70-105); SODIUM SERUM 137 mmol/L (136-145); TOTAL PROTEIN, SERUM 7.3 g/dL (6.0-8.3); UREA NITROGEN, BLOOD 33 mg/dL (7-18)
[2025-07-10 17:02] LABS: PLATELET MORPHOLOGY COMMENT MARKED DECREASE
[~2025-07-17] VITALS: Ht 152.4 cm; Wt 60.3 kg
[~2025-07-17 10:15] MED LIST changes: +ACET-66 PO
[2025-07-17 11:15] VITALS: BP 136/71; PULSE 80; RESP 18; TEMP 97.7
[2025-07-17] MEDS: 0.9%NACL 1000ML 1,000 ML IV ONE (11:29)
[2025-07-17] MEDS ORDERED: FERR-82 PO (11:52)
[2025-07-17] MEDS ORDERED: INSU3INS3 SQ (11:52)
[2025-07-17 12:07] LABS: IMMATURE GRANULOCYTE ABSOLUTE 0.01 K/uL (0-1); NUCLEATED RED BLOOD CELLS 0.0 % (0.0-0.19); PLATELET COUNT (AUTO) 37 K/uL (130-400); RED BLOOD CELL COUNT(AUTO) 3.26 MIL/uL (4.00-5.50); RED CELL DISTRIBUTION WIDTH 14.7 % (11.0-15.5); WHITE BLOOD COUNT (AUTO) 1.5 K/uL (4.8-10.8)
[2025-07-17 12:15] LABS: CREATININE 4.9 mg/dL (0.5-1.0); GLOMERULAR FILTR. RATE CALC 9.0 mL/min (>90); GLUCOSE,RANDOM 136.0 mg/dL (70-105); SODIUM SERUM 136.0 mmol/L (136-145); UREA NITROGEN, BLOOD 16.0 mg/dL (7-18)
[2025-07-17 12:18] LABS: INR 1.09 (0.85-1.15)
[2025-07-17 12:20] LABS: ASPARTATE AMINOTRANSFERASE 26.0 U/L (10-37); TOTAL PROTEIN, SERUM 7.0 g/dL (6.0-8.3)
--- NOTE | 2025-07-17 12:34 | NUR ---
PATIENT CANCELLED DUE TO LOW PLATELETS
[2025-07-18] MEDS ORDERED: 0.9%NACL 1000ML 1,000 ML IV ONE (09:40)
== END 2025-07-17 12:45 | disposition home or self-care (01) ==
LOC: ENDO 10:15 → DAH 10:15 → ENDO 12:45
PROVIDERS: ATTEND Internal Medicine Gastroenterology
DX: K74.60 Unspecified cirrhosis of liver (principal); K76.6 Portal hypertension; K22.89 Other specified disease of esophagus; Z90.49 Acquired absence of other specified parts of digestive tract; Z79.82 Long term (current) use of aspirin; Z79.899 Other long term (current) drug therapy; Z53.8 Procedure and treatment not carried out for other reasons
CPT/HCPCS: 36415; 80053; 82105; 82140; 82948; 85025; 85610; 85730; J7030

== ENCOUNTER 2025-07-18 08:41 | Day surgery (SDC) | payer OTHER ==
[~2025-07-18] VITALS: Ht 152.4 cm; Wt 60.3 kg
[~2025-07-18 08:41] MED LIST changes: -ACET-66 PO; -INSU100V37 SQ; +INSU3INS3 SQ
[2025-07-18 09:45] VITALS: BP 128/46; PULSE 68; RESP 16; TEMP 97.9
[2025-07-18 09:54] LABS: IMMATURE GRANULOCYTE ABSOLUTE 0.00 K/uL (0-1); NUCLEATED RED BLOOD CELLS 0.0 % (0.0-0.19); PLATELET COUNT (AUTO) 40 K/uL (130-400); RED BLOOD CELL COUNT(AUTO) 3.62 MIL/uL (4.00-5.50); RED CELL DISTRIBUTION WIDTH 14.8 % (11.0-15.5); WHITE BLOOD COUNT (AUTO) 1.5 K/uL (4.8-10.8)
[2025-07-18 10:03] LABS: CREATININE 6.5 mg/dL (0.5-1.0); GLOMERULAR FILTR. RATE CALC 7.0 mL/min (>90); GLUCOSE,RANDOM 151.0 mg/dL (70-105); SODIUM SERUM 135.0 mmol/L (136-145); UREA NITROGEN, BLOOD 22.0 mg/dL (7-18)
[2025-07-18 10:04] LABS: INR 1.08 (0.85-1.15)
[2025-07-18 10:08] LABS: ASPARTATE AMINOTRANSFERASE 37.0 U/L (10-37); TOTAL PROTEIN, SERUM 7.9 g/dL (6.0-8.3)
[2025-07-18 11:09] LABS: PLATELET MORPHOLOGY COMMENT MARKED DECREASE
--- NOTE | 2025-07-18 11:41 | NUR ---
PATIENT CANCELLED DUE TO LOW PLATELET AND WBC
== END 2025-07-18 12:00 | disposition home or self-care (01) ==
LOC: DAH 08:41
PROVIDERS: ATTEND Internal Medicine Gastroenterology
DX: K74.60 Unspecified cirrhosis of liver (principal); K76.6 Portal hypertension; K22.89 Other specified disease of esophagus; E78.5 Hyperlipidemia, unspecified; E03.9 Hypothyroidism, unspecified; I12.0 Hypertensive chronic kidney disease with stage 5 chronic kidney disease or end stage renal disease; E11.22 Type 2 diabetes mellitus with diabetic chronic kidney disease; N18.6 End stage renal disease; Z99.2 Dependence on renal dialysis; Z90.49 Acquired absence of other specified parts of digestive tract; Z98.890 Other specified postprocedural states; Z79.899 Other long term (current) drug therapy; Z53.8 Procedure and treatment not carried out for other reasons
CPT/HCPCS: 36415; 80053; 85025; 85610; 85730; 86850; 86900; 86901